=== PATIENT | male | born 1995 | race Caucasian/White ===

== ENCOUNTER 2016-10-18 22:07 | Emergency (ER) | payer OTHER ==
[~2016-10-18] VITALS: Ht 180.3 cm; Wt 70.8 kg
[~2016-10-18 22:07] MED LIST: CETI10TA10 PO; CITA10TA8 PO; DEXM20CA PO; DEXM30CA; MELA5CAP PO; MINO100T PO; MONT1TAB3 PO
[2016-10-18 22:11] VITALS: TEMP 36.7; Ht 180.3 cm; Wt 70.8 kg
[2016-10-18] MEDS ORDERED: LIDOCAINE/EPINEPH/TETRACAINE 1 EA SYR EXT STA (23:14)
[2016-10-18] MEDS ORDERED: DIPHTHERIA/TETANUS/PERTUSSIS 0.5 ML SYR/VIAL IM. ONE (23:15)
--- NOTE | 2016-10-19 00:38 | EMERGENCY ROOM VISIT NOTE ---
ED Visit Note First contact with patient: 23:08 CHIEF COMPLAINT: Facial laceration HISTORY OF PRESENT ILLNESS: This 21-year-old male patient presents emergency department ambulatory complaining of a laceration to the left eyebrow. The patient states that he was goofing off with a family friend and they There was no loss of consciousness, vomiting, or unusual behavior afterwards. Denies neck pain. No headache, nausea, or blurred vision. There is no active bleeding. The patient rates the pain as 4/10. The patient's tetanus shot is not up to date. REVIEW OF SYSTEMS: A 6 system review of systems was completed with positives and pertinent negatives listed in the HPI. ALLERGIES: No known drug allergies MEDICATIONS: Focalin PMH: ADHD, asthma SOCIAL HISTORY: Patient lives locally with family. Nonsmoker, denies alcohol use. PHYSICAL EXAM: Vital Signs: Reviewed Nurse's notes, vital signs stable. GENERAL : This is a 21-year-old male, in no acute distress, well-developed, well- nourished. NEURO: The patient is alert and oriented to person place and time. No focal neurological defects. EYES: Pupils are round, equal, and react to light. EOMI. EARS: No hemotympanum. NECK: Supple. No cervical spine tenderness. FACE: No facial bone tenderness or mandibular tenderness. The mouth can open fully. The teeth are well aligned. No loose or chipped teeth. SKIN: There is a 3.5 cm laceration inferior to the left eyebrow. The edges gape apart with traction. There is no active bleeding and no foreign material in the wound. There are no deep structures present. Capillary refill less than two seconds. Normal sensation to light and sharp touch. EMERGENCY DEPARTMENT COURSE: I examined the patient. Verbal consent was obtained to perform the procedure. LET gel was applied to the laceration and left in place for greater than 30 minutes. Using sterile technique the wound was cleansed with Betadine. The area was sterilely draped. Once the patient was anesthetized, the wound was copiously irrigated under pressure with sterile saline. The wound was explored and was as described above. The laceration was repaired using 5 simple interrupted 6-0 nylon sutures with the wound edges being well approximated. The patient tolerated the procedure well. Hemostasis was achieved. The area was cleaned with sterile saline and dressed with bacitracin ointment. The patient was given Td immunization. The patient was discharged home in good condition. DIAGNOSIS: Facial laceration Current/Historical Medications Scheduled Dexmethylphenidate Hcl (Focalin Xr), 1 CAPSULE QAM Dexmethylphenidate Hcl (Focalin Xr), 1 CAPSULE PO Q AFTERNOON Allergies Coded Allergies: No Known Allergies (Unverified , 10/18/16) Vital Signs Date Time Temp Pulse Resp B/P (MAP) Pulse Ox O2 Delivery O2 Flow Rate FiO2 10/19/16 00:48 89 16 112/58 99 Room Air 10/18/16 23:38 84 16 129/84 99 Room Air 10/18/16 22:11 36.7 85 16 136/88 99 Room Air Medications Administered Medications (Trade) Dose Ordered Sig/Juan Route Start Time Stop Time Status Last Admin Dose Admin Diphtheria/ Pertussis/Tetanus Vacc (Adacel Inj) 0.5 ml ONCE ONCE IM. 10/18/16 23:15 10/18/16 23:16 DC 10/18/16 23:35 0.5 ML Tetracaine/ Epinephrine/ Lidocaine (L.e.t. Gel 4%/ 1:100/0.5%) 1 ea UD STAT EXT 10/18/16 23:14 10/18/16 23:16 DC 10/18/16 23:34 1 EA Departure Information Impression Primary Impression: Facial laceration Dispostion Home / Self-Care Condition GOOD Referrals Jacques Armstrong D.O. (PCP) Patient Instructions My [facility] Additional Instructions You have received 5 sutures on your left eyebrow. These sutures are NOT dissolvable and WILL need to be removed by a health care provider in 6-7 days. You can return to the Emergency Department or contact your Primary Care Provider to have the sutures removed. Proper wound care is essential for adequate wound healing and infection prevention. You can shower and clean the wound with soap and water. Do not scour over the wound, pat dry with a towel. Do not submerse the wound (i.e. bathe or dish wash) until the sutures have been removed. You can use an antibiotic ointment with a dressing over the wound for the next 3-4 days. After this time you may leave the wound dry and open to the air. If crust develops over the wound you can use a Q-tip to apply a 1:1 peroxide:water solution to clean the wound. Look for signs of infection of the wound including: increased pain, swelling, foul discharge, streaking, or increased temperature. If any of these are noticed you should return to the Emergency Department for further assessment and treatment. As with any laceration you may have received nerve damage to the surrounding tissues. This damage may or may not be permanent. You should keep the area covered with sunscreen for the first 6 months to 1 year when at risk for exposure to help minimize scarring. You can also use scar reducing creams or Vitamin E oil to help minimize scarring. For pain control, you can use the following ynds-toi-cludoee medicines (if >12 yo): - Regular strength (325mg/tab) Tylenol (acetaminophen) 2 tabs every 4-6 hours as needed. Do not exceed 12 tablets in a 24 hour period. Avoid taking more than 4 grams (4000 mg) of Tylenol per day. This includes any other sources of acetaminophen you may take on a regular basis. - Regular strength (200 mg/tab) Advil (ibuprofen) 1-2 tabs every 4-6 hours as needed. Do not exceed a dose of 3200 mg per day. Return to the emergency department if your symptoms worsen despite treatment course outlined above. Problem Qualifiers Primary Impression: Facial laceration Encounter type: initial encounter Qualified Codes: S01.81XA - Laceration without foreign body of other part of head, initial encounter
[2016-10-19 00:48] VITALS: BP 112/58; PULSE 89; O2SAT 99
== END 2016-10-19 00:45 | disposition home or self-care (01) ==
LOC: C.EDB 22:09 → C.EDC 10-19 00:45
DX: S01.112A Laceration without foreign body of left eyelid and periocular area, initial encounter (principal); X58.XXXA Exposure to other specified factors, initial encounter; F90.9 Attention-deficit hyperactivity disorder, unspecified type; J45.909 Unspecified asthma, uncomplicated; Z23 Encounter for immunization

== ENCOUNTER → 2016-10-20 | Outpatient (CLI) | payer OTHER ==
[~2016-10-20] MED LIST changes: -CETI10TA10 PO; -CITA10TA8 PO; -MELA5CAP PO; -MINO100T PO; -MONT1TAB3 PO
[2016-10-20 12:32] LABS: LYME DISEASE AB IGG NEG (NEG); LYME DISEASE AB IGM NEG (NEG)
== END | disposition home or self-care (01) ==
LOC: C.LABPBG 08:09
PROVIDERS: ATTEND Physician Assistant Medical
DX: S20.462A Insect bite (nonvenomous) of left back wall of thorax, initial encounter (principal); W57.XXXA Bitten or stung by nonvenomous insect and other nonvenomous arthropods, initial encounter

== ENCOUNTER 2017-03-05 16:19 | Emergency (ER) | payer OTHER ==
[~2017-03-05] VITALS: Ht 180.3 cm; Wt 71.7 kg
[~2017-03-05 16:19] MED LIST changes: -DEXM30CA; +DEXM30CA PO
[2017-03-05 16:21] VITALS: Ht 180.3 cm; Wt 71.7 kg
[2017-03-05] MEDS ORDERED: ONDANSETRON INJ 2 MG/ML 2 ML VIAL IV STA (16:41)
[2017-03-05] MEDS ORDERED: MoRPHine SULFATE 10 MG/ML CARP/VIAL IV STA (16:41)
[2017-03-05 17:02] VITALS: BP 139/89; PULSE 91; TEMP 36.5; O2SAT 100
[2017-03-05] MEDS ORDERED: DEXM20CA PO (17:07)
[2017-03-05] MEDS ORDERED: DEXM30CA PO (17:08)
--- NOTE | 2017-03-05 17:10 | EMERGENCY ROOM VISIT NOTE ---
History First contact with patient: 16:25 Chief Complaint: WRIST PAIN Stated Complaint: FELL OFF ROOF, RT WRIST PAIN, FOREARM-WC History of Present Illness The patient is a 21 year old male who presents to the Emergency Room with complaints of a right wrist injury. The patient reports that he was at work and fell off of a roof onto the snow. He fell onto his back and an outstretched right arm. He reports 10/10 pain in the wrist. He denies headache , neck pain, back pain, chest pain, abdominal pain or shortness of breath. He denies any numbness or weakness in the hand. He does report a previous fracture to this wrist as a child. He denies any injury to the proximal forearm , elbow or shoulder. Review of Systems A complete 10 point review of systems was reviewed with the patient with pertinent positives and negatives as per history of present illness. All else were negative. Past Medical/Surgical History Surgical Problems: (1) History of wisdom tooth extraction (2) S/P tonsillectomy and adenoidectomy Social History Smoking Status: Never Smoker Alcohol Use: none Housing Status: lives with family Occupation Status: employed Current/Historical Medications Scheduled Dexmethylphenidate Hcl (Focalin Xr), 20 MG PO Q AFTERNOOON Dexmethylphenidate Hcl (Focalin Xr), 30 MG PO QAM Scheduled PRN Oxycodone/Acetaminophen 5MG/325MG (Percocet 5MG/325MG), 1-2 TABS PO Q4H PRN for Pain Physical Exam Vital Signs Date Time Temp Pulse Resp B/P (MAP) Pulse Ox O2 Delivery O2 Flow Rate FiO2 03/05/17 18:42 72 17 134/75 98 Room Air 03/05/17 17:35 88 18 120/62 99 03/05/17 17:02 36.5 91 16 139/89 100 Room Air 03/05/17 16:21 36.5 91 16 139/89 100 Room Air Physical Exam VITALS: Vitals are noted on the nurse's note and reviewed by myself. Vital signs stable. GENERAL: This is a 21-year-old male, in no acute distress, nondiaphoretic, well- developed well-nourished. SKIN: The skin was without erythema, edema, or ecchymosis. Capillary refill less than 2 seconds. HEAD: Normocephalic atraumatic. EARS: External auditory canals clear, tympanic membranes pearly meyer without erythema or effusion bilaterally. No hemotympanum. EYES: Pupils equal round and reactive to light and accommodation. MOUTH: Mucous membranes moist. Tonsils are not enlarged. NECK: Supple without nuchal rigidity. Cervical spine nontender. HEART: Regular rate and rhythm without murmurs gallops or rubs. LUNGS: Clear to auscultation bilaterally without wheezes, rales or rhonchi. No retractions or accessory muscle use. ABDOMEN: Soft, nontender. WRIST: There is obvious deformity of the right wrist with dorsal angulation of the distal aspect. Radial pulse is 2+. Normal range of motion of all fingers. Capillary refill within two seconds. No tenderness of the right proximal forearm, elbow, humerus, or shoulder. MUSCULOSKELETAL: No tenderness of the cervical, thoracic or lumbar spine. No tenderness of the posterior ribs or chest wall. NEURO: Patient was alert and oriented to person place and time. Normal sensation. Medical Decision & Procedures ER Provider Diagnostic Interpretation: R WRIST MIN 3 VIEWS ROUTINE FINDINGS: Comminuted extra-articular fracture of the distal radial metaphysis with nearly one shaft width dorsal displacement of the distal fracture fragment, which includes the carpus. No significant angulation at the fracture site. Slight foreshortening may be present. The distal radial ulnar articulation appears congruent. IMPRESSION: Comminuted extra-articular fracture of the distal radial metaphysis with nearly one shaft width dorsal displacement of the distal fracture fragment. R WRIST 2 VIEW (POST-REDUCTION) FINDINGS: Fine detail is diminished by overlying cast. Alignment of the distal right radial fracture has improved post reduction. Intra-articular extension is noted. A possible ulnar styloid fracture is noted. IMPRESSION: 1. Significant improvement in alignment of the distal right radial fracture post reduction. 2. Suspected ulnar styloid fracture. Medications Administered Medications (Trade) Dose Ordered Sig/Juan Route Start Time Stop Time Status Last Admin Dose Admin Ondansetron HCl (Zofran Inj) 4 mg NOW STAT IV 03/05/17 16:41 03/05/17 16:43 DC 03/05/17 17:33 4 MG Morphine Sulfate (MoRPHine SULFATE INJ) 4 mg STK-MED ONCE .ROUTE 03/05/17 17:29 03/05/17 17:30 DC 03/05/17 17:34 4 MG Morphine Sulfate (MoRPHine SULFATE INJ) 2 mg STK-MED ONCE .ROUTE 03/05/17 17:30 03/05/17 17:31 DC 03/05/17 17:34 2 MG Lidocaine HCl (Xylocaine 1% Inj (Local)) 20 ml STK-MED ONCE .ROUTE 03/05/17 17:42 03/05/17 17:43 DC 03/05/17 17:42 20 ML Oxycodone/ Acetaminophen (Percocet 5/ 325MG Home Pack) 1 homepack UD ONCE PO 03/05/17 18:15 03/05/17 18:16 DC 03/05/17 18:41 1 HOMEPACK ED Course The patient was evaluated as above. IV access was obtained. Patient was medicated with 6 mg morphine and 4 mg Zofran. Wrist x-ray was performed and read by radiology as above. Dr. Dennis of [facility] was consulted. He performed a hematoma block and reduction of the wrist fracture. Please see his note for details. Plaster cast was placed on the patient's wrist. He was placed in an arm sling for his comfort. He was given a home pack of Percocet. Discharge instructions were reviewed with the patient. The patient verbalized understanding of my assessment and treatment plan and was discharged home in good condition. Medical Decision Differential diagnosis includes fracture, contusion, dislocation, among others. The patient is a 21-year-old male who presents today complaining of right wrist pain after a fall. Full examination was performed and the patient does not seem to have any further injuries. X-ray of the wrist showed a significantly displaced and angulated Colles' fracture. Orthopedics was consulted and a reduction was performed after hematoma block. Postreduction films were performed and showed much better alignment of the wrist. The patient remained neurovascularly intact. He was placed in a cast an arm sling. He will follow- up in the office this week to arrange surgery. He was given a home pack and prescription of Percocet. He was given warning symptoms for compartment syndrome. He verbalized understanding of my assessment and treatment plan and was discharged home in good condition. [place] Drug Monitoring Program Search Results: patient reviewed within database, no issues identified Medication Reconcilliation Current Medication List: was personally reviewed by me Blood Pressure Screening Patient's blood pressure: Normal blood pressure Impression Primary Impression: Distal radius fracture, right Departure Information Dispostion Home / Self-Care Condition GOOD Prescriptions Oxycodone/Acetaminophen 5MG/325MG (PERCOCET 5MG/325MG) Tab 1-2 TABS PO Q4H Y for Pain, #20 TAB For Initial Treatment Prov: Kmi Ramirez PA-C 03/05/17 Referrals No Doctor, Assigned (PCP) Marlo Dennis M.D. Patient Instructions My [facility] Additional Instructions You have been treated in the Emergency Department for a Wrist Fracture. You have received pain medicine in the emergency department which impairs your ability to operate a vehicle. It is illegal for you to drive after receiving these medicines. You have been prescribed Percocet to be used for pain control. This is a narcotic medication. You cannot drive or consume alcohol while on this medicine. This medicine should only be used for pain that cannot be controlled with iqim-fsh-xyozsrn pain medicines. For pain control, you can use the following vnbl-gnw-woaptjs medicines (if >12 yo): - Regular strength (325mg/tab) Tylenol (acetaminophen) 2 tabs every 4-6 hours as needed. Do not exceed 12 tablets in a 24 hour period. Avoid taking more than 4 grams (4000 mg) of Tylenol per day. This includes any other sources of acetaminophen you may take on a regular basis. If this is a recent injury (<24 hrs), ice can be applied to the area of pain for the first 3 days to help decrease pain and inflammation. Call Dr. Dennis's office tomorrow to set up an appointment to complete paperwork and schedule surgery. Keep the cast in place until follow-up with orthopedics. Do NOT get the cast wet. Return to the Emergency Department if your current symptoms worsen despite treatment course outlined above, or if you develop any of the following symptoms : worsening pain in the wrist or new onset of numbness or tingling of the fingers. Problem Qualifiers Primary Impression: Distal radius fracture, right Encounter type: initial encounter Fracture type: closed Fracture morphology : Colles' Qualified Codes: S52.531A - Colles' fracture of right radius, initial encounter for closed fracture
--- NOTE | 2017-03-05 17:16 | DIAGNOSTIC IMAGING REPORT ---
R WRIST MIN 3 VIEWS ROUTINE CLINICAL HISTORY: 21 years-old Male presenting with right wrist injury w/ deformity, fall. TECHNIQUE: Frontal, oblique, and crosstable lateral views of the right wrist were obtained. COMPARISON: None. FINDINGS: Comminuted extra-articular fracture of the distal radial metaphysis with nearly one shaft width dorsal displacement of the distal fracture fragment, which includes the carpus. No significant angulation at the fracture site. Slight foreshortening may be present. The distal radial ulnar articulation appears congruent. IMPRESSION: Comminuted extra-articular fracture of the distal radial metaphysis with nearly one shaft width dorsal displacement of the distal fracture fragment. Electronically signed by: Dino Campos M.D. 03/05/2017 5:15 PM Dictated Date/Time: 03/05/2017 5:14 PM
[2017-03-05] MEDS ORDERED: MoRPHine SULFATE 4 MG/ML 1 ML CARP\\VIAL ONE (17:29)
[2017-03-05] MEDS ORDERED: MoRPHine SULFATE 2 MG/ML CARP ONE (17:30)
[2017-03-05] MEDS ORDERED: LIDOCAINE HCL 1% 20 ML VIAL ONE (17:42)
[2017-03-05] MEDS ORDERED: PERCOCET HOME PACK PO ONE (18:15)
[2017-03-05] MEDS ORDERED: OXYC-57 PO (18:16)
--- NOTE | 2017-03-05 18:28 | DIAGNOSTIC IMAGING REPORT ---
R WRIST 2 VIEW CLINICAL HISTORY: POST REDUCTION COMPARISON: Right wrist radiographs March 05, 2017. FINDINGS: Fine detail is diminished by overlying cast. Alignment of the distal right radial fracture has improved post reduction. Intra-articular extension is noted. A possible ulnar styloid fracture is noted. IMPRESSION: 1. Significant improvement in alignment of the distal right radial fracture post reduction. 2. Suspected ulnar styloid fracture. Electronically signed by: Jose Allan M.D. 03/05/2017 6:27 PM Dictated Date/Time: 03/05/2017 6:26 PM
[2017-03-05 18:42] VITALS: BP 134/75; PULSE 72; O2SAT 98
--- NOTE | 2017-03-05 20:06 | ORTHOPEDIC CONSULTATION ---
DATE OF CONSULTATION: 03/05/2017 HISTORY OF PRESENT ILLNESS: The patient is a 21-year-old male who was doing some work for an employer, working on a property. He said he was up on a roof and was getting a stick off a roof today. He did successfully get the stick off the roof but he slipped off the roof and fell down and had immediate pain and deformity of his right arm and wrist. With immediate pain, deformity closed injury, presented to Emergency Room, had x-rays demonstrating a displaced fracture of his wrist. PAST MEDICAL HISTORY: Positive for ADHD. Otherwise healthy without any problems. REVIEW OF SYSTEMS: Noncontributory. MEDICATIONS: Dexmethylphenidate hydrochloride 20 mg capsule daily in the afternoon, dexmethylphenidate HCL 30 mg capsule q.a.m. and Percocet for pain. ALLERGIES: LATEX. No known drug allergies. PHYSICAL EXAMINATION: EXTREMITIES: Demonstrates no head trauma. He has no other extremity trauma. No other pain or complaints. Exam of his right wrist demonstrates that he has a significant deformity consistent with a displaced Colles' fracture with dorsal translation of the wrist with respect to the shaft. He has moderate swelling. NEUROLOGICAL: Intact in terms of sensation and circulation. He could not move his thumb well at this time. X-rays demonstrated a comminuted extraarticular Colles' fracture with significant dorsal displacement, apex volar angulation. ASSESSMENT: Comminuted acute distal radius fracture, extraarticular but significant dorsal comminution. PLAN: I discussed with the patient he is going to require external fixation for definitive treatment, but at this time going to do a closed reduction and splint him, assess post-reduction films and we can schedule the surgery electively. The patient is a full stomach, so we could not do any conscious sedation at this time. We did proceed with sterilely prepping his right wrist with Betadine and we used ethyl chloride spray for topical analgesia and then did a 1% lidocaine hematoma block with 10 mL of lidocaine. Then after letting this set up and he had good analgesia, went ahead and did a closed reduction by reproducing the deformity with extension and longitudinal traction and placing him in flexion and ulnar deviation. He did feel like he still was unstable and we had to manually hold him in position with traction, flexion and ulnar deviation to maintain the reduction. I placed anterior and posterior plaster splints which were molded and held in position until the fracture cured. We got post-reduction x-rays and then put a sugar tong fiberglass splint around the elbow with Ortho-Glass. Placed Gino wraps from the hand up to the elbow. Post-reduction x-rays demonstrate on the AP view to be anatomic with normal taoism of his radial inclination and normal length. On the lateral, there was a few millimeters of dorsal displacement and there was dorsal comminution noted.
== END 2017-03-05 18:51 | disposition home or self-care (01) ==
LOC: C.EDB 16:20 → C.EDC 18:51
DX: S52.501A Unspecified fracture of the lower end of right radius, initial encounter for closed fracture (principal); W17.89XA Other fall from one level to another, initial encounter; Y92.89 Other specified places as the place of occurrence of the external cause; Y99.0 Civilian activity done for income or pay; Z98.890 Other specified postprocedural states

== ENCOUNTER → 2017-05-21 | Outpatient (CLI) | payer OTHER ==
[~2017-05-21] MED LIST changes: +OXYC-57 PO
== END | disposition home or self-care (01) ==
LOC: C.LABPBG 07:45
PROVIDERS: ATTEND Physician Assistant Medical
DX: F90.1 Attention-deficit hyperactivity disorder, predominantly hyperactive type (principal)

== ENCOUNTER 2017-11-01 14:07 | Emergency (ER) | payer OTHER ==
[~2017-11-01] VITALS: Ht 182.9 cm; Wt 68.0 kg
[~2017-11-01 14:07] MED LIST changes: -OXYC-57 PO
[2017-11-01 14:15] VITALS: BP 127/69; PULSE 92; TEMP 36.7; O2SAT 97; Ht 182.9 cm; Wt 68.0 kg
[2017-11-01] MEDS ORDERED: CEPH500C PO (14:35)
--- NOTE | 2017-11-02 01:08 | EMERGENCY ROOM VISIT NOTE ---
History First contact with patient: 14:20 Chief Complaint: NASAL PAIN/INJURY Stated Complaint: TOP OF NOSE SEEMS TO BE OUT OF LINE History of Present Illness The patient is a 22 year old male who presents to the Emergency Room with complaints of redness, swelling and pain of his nose. The patient reports that he noticed redness yesterday. He denies any known injury to the nose. He reports that it has been itchy, and he has been scratching it. He denies any recent runny nose, congestion, headache, sore throat or cough. He denies any history of recurrent skin infections, and rates his pain a 3 out of 10. Review of Systems 10 system review was performed and was negative except for pertinent positives and negatives as indicated in history of present illness Past Medical/Surgical History Medical Problems: (1) Asthma (2) Attention-Deficit Hyperactivity Disorder, Unspecified Type (3) Chronic Sinusitis Nos Surgical Problems: (1) History of wisdom tooth extraction (2) S/P tonsillectomy and adenoidectomy Family History Unremarkable Social History Smoking Status: Never Smoker Alcohol Use: none Marital Status: single Housing Status: lives with family Occupation Status: employed Current/Historical Medications Scheduled Cephalexin Monohydrate (Keflex), 500 MG PO QID Dexmethylphenidate Hcl (Focalin Xr), 20 MG PO Q AFTERNOOON Dexmethylphenidate Hcl (Focalin Xr), 30 MG PO QAM Physical Exam Vital Signs Date Time Temp Pulse Resp B/P (MAP) Pulse Ox O2 Delivery O2 Flow Rate FiO2 11/01/18 14:15 36.7 92 16 127/69 97 Room Air Physical Exam CONSTITUTIONAL: Healthy and well nourished. Patient does not appear in any acute distress. HEENT: Examination shows erythema and edema across the bridge of the nose. There is some crusting on the wound. No vesicles or pustules noted. No fluctuance. Nares were examined and clear, showing no evidence for purulent drainage. Pupils equal, round and reactive. TMs are normal. OROPHARYNX: No posterior pharyngeal erythema or postnasal drip. NECK: Full active range of motion without discomfort. INTEGUMENTARY: No other rashes or other significant dermatologic conditions noted. NEUROLOGIC: No focal neurologic deficits noted. Medical Decision & Procedures ED Course Patient history and physical exam were performed. Nurse's notes were reviewed. Vital signs were reviewed and normal. The patient was advised that clinical exam is consistent with a cellulitis. The patient was provided a prescription for Keflex and instructions for use. He was encouraged to avoid scratching the wound. Ibuprofen or Tylenol as needed for pain. He was encouraged to follow- up with his family doctor if symptoms are not improving within the next 3 days. Return to the emergency department for any significantly worsening redness, swelling, pain or fever. The patient voiced understanding of all discharge instructions, was happy with plan of care, and denied any significant discomfort at the conclusion of my exam. Medical Decision [place] Drug Monitoring Program Search Results: patient reviewed within database, no issues identified Blood Pressure Screening Patient's blood pressure: Normal blood pressure Impression Primary Impression: Nose cellulitis Departure Information Dispostion Home / Self-Care Prescriptions Cephalexin Monohydrate (Keflex) 500 Mg Cap 500 MG PO QID for 7 Days, #28 CAP Prov: Cem Gregg PA 11/01/17 Forms HOME CARE DOCUMENTATION FORM, IMPORTANT VISIT INFORMATION Patient Instructions My [facility] Additional Instructions Complete all Keflex antibiotics as prescribed. Redness should start to fade away within 48 hours. Follow-up with your family doctor if the redness is not improving within the next 3 days. Return to the emergency department for any significantly worsening redness, swelling, pain or fever.
== END 2017-11-01 14:45 | disposition home or self-care (01) ==
LOC: C.EDB 14:17 → C.EDD 14:45
DX: J34.0 Abscess, furuncle and carbuncle of nose (principal); J45.909 Unspecified asthma, uncomplicated; J32.9 Chronic sinusitis, unspecified; F90.9 Attention-deficit hyperactivity disorder, unspecified type; Z79.899 Other long term (current) drug therapy